=== PATIENT | male | born 1970 | race Caucasian/White ===

== ENCOUNTER 2017-04-08 17:36 | Emergency (ER) | payer OTHER ==
[~2017-04-08] VITALS: Ht 172.7 cm; Wt 93.3 kg
[2017-04-08] MEDS ORDERED: NAPROSYN500 MG PO (19:56)
[2017-04-08] MEDS ORDERED: FLEXERIL10 MG PO (19:56)
== END 2017-04-08 20:23 | disposition home or self-care (01) ==
LOC: EME 17:36
DX: M54.2 Cervicalgia (principal); M62.838 Other muscle spasm
CPT/HCPCS: 72040; 99281; 99283

== ENCOUNTER 2017-06-01 17:59 | Emergency (ER) | payer OTHER ==
[~2017-06-01] VITALS: Ht 177.8 cm; Wt 94.2 kg
[~2017-06-01 17:59] MED LIST: FLEXERIL10 MG PO; NAPROSYN500 MG PO
[2017-06-01] MEDS ORDERED: NORCO 7.5/321 TABLET PO (20:02)
[2017-06-01] MEDS ORDERED: MOTRIN800 MG PO (20:02)
[2017-06-01] MEDS ORDERED: VALIUM5 MG PO (20:02)
[2017-06-01 20:30] VITALS: BP 132/78
== END 2017-06-01 20:42 | disposition home or self-care (01) ==
LOC: EME 17:59
DX: G89.29 Other chronic pain (principal); M50.30 Other cervical disc degeneration, unspecified cervical region; M79.601 Pain in right arm
CPT/HCPCS: 99281; 99284; J1100

== ENCOUNTER → 2018-03-25 | Outpatient (CLI) | payer OTHER ==
[~2018-03-25] VITALS: Ht 172.7 cm; Wt 79.5 kg
[~2018-03-25] MED LIST changes: +KLONOPIN1 MG PO; +MOBIC15 MG PO; +MOTRIN800 MG PO; +NORCO 7.5/321 TABLET PO; +TRAMADOL HCL50 MG PO; +TRIHEXYPHENIDYL PO; +VALIUM5 MG PO
[2018-03-25 07:07] VITALS: BP 137/90
== END | disposition home or self-care (01) ==
LOC: OPR 06:40
DX: M48.02 Spinal stenosis, cervical region (principal); M50.223 Other cervical disc displacement at C6-C7 level; M47.812 Spondylosis without myelopathy or radiculopathy, cervical region; M54.12 Radiculopathy, cervical region; G89.4 Chronic pain syndrome; R25.8 Other abnormal involuntary movements
CPT/HCPCS: 72141